=== PATIENT | male | born 1995 | race Caucasian/White ===

== ENCOUNTER 2019-12-17 18:46 | Emergency (ER) | payer BC ==
--- NOTE | 2019-12-17 20:41 | EDM.PDOC ---
ED HPI GENERAL MEDICAL PROBLEM - General Chief Complaint: Laceration Stated Complaint: LACERATION TO HEAD Time Seen by Provider: 12/17/19 19:22 Source of Information: Reports: Patient, Family (Mom at bedside) History Limitations: Reports: No Limitations - History of Present Illness INITIAL COMMENTS - FREE TEXT/NARRATIVE: chief complaint: head laceration This is a 24 year old male prior to arrival was at the [facility], slipped and fell, hit the side of his head on a fire ring. He did not have any LOC. Didn't realized he had a laceration until someone at the [facility] notice blood in his hair. He has no complaints. Onset: Today Duration: Hour(s): Location: Reports: Head Quality: Reports: Ache Severity: Mild Improves with: Reports: None Worsens with: Reports: None Associated Symptoms: Reports: No Other Symptoms Past Medical History Respiratory History: Reports: Asthma Other Respiratory History: asthma as a child, no issues in the last 10 years. Neurological History: Reports: Concussion - Past Surgical History HEENT Surgical History: Reports: LESLIEIK Social & Family History - Family History Family Medical History: Noncontributory - Tobacco Use Smoking Status *Q: Never Smoker - Caffeine Use Caffeine Use: Reports: None - Recreational Drug Use Recreational Drug Use: Yes Recreational Drug Type: Reports: Marijuana/Hashish Recreational Drug Use Frequency: Socially - Living Situation & Occupation Living situation: Reports: Single ED ROS GENERAL - Review of Systems Review Of Systems: See Below Constitutional: Reports: No Symptoms HEENT: Reports: No Symptoms Respiratory: Reports: No Symptoms Cardiovascular: Reports: No Symptoms Endocrine: Reports: No Symptoms GI/Abdominal: Reports: No Symptoms : Reports: No Symptoms Musculoskeletal: Reports: No Symptoms Skin: Reports: Wound (left side of scalp) Neurological: Reports: No Symptoms Psychiatric: Reports: No Symptoms Hematologic/Lymphatic: Reports: No Symptoms Immunologic: Reports: No Symptoms ED EXAM, SKIN/RASH Exam: See Below Exam Limited By: No Limitations General Appearance: Alert, WD/WN, No Apparent Distress Eye Exam: Bilateral Eye: EOMI, Normal Inspection, PERRL Ears: Normal External Exam Nose: Normal Inspection Throat/Mouth: Normal Inspection Neck: Normal Inspection, Supple, Non-Tender, Full Range of Motion Respiratory/Chest: No Respiratory Distress, Lungs Clear, Normal Breath Sounds Cardiovascular: Regular Rate, Rhythm, No Murmur GI/Abdominal: Soft Extremities: Normal Inspection, Normal Range of Motion, Non-Tender, No Pedal Edema, Normal Capillary Refill, Other (abrasion to left knee- without bleeding) Neurological: Alert, Oriented, No Motor/Sensory Deficits Psychiatric: Normal Affect, Normal Mood Skin: Warm, Dry, Wound/Incision Location, Skin: Head Characteristics: Linear Lymphatic: No Adenopathy ED SKIN PROCEDURES - Laceration/Wound Repair Left [place] Head Appearance: Subcutaneous, Linear, Clean Distal NVT: Neuro & Vascular Intact, No Tendon Injury Anesthetic Type: Local Local Anesthesia - Lidocaine (Xylocaine): 1% with EPI Local Anesthetic Volume: 2cc Skin Prep: Providone-Iodine (Betadine) Exploration/Debridement/Repair: Wound Explored Closed with: Sutures Lac/Wound length In cm: 1.4 Suture Size: 4-0 # of Sutures: 4 Suture Type: Prolene Sterile Dressing Applied: None Tetanus Status Addressed: Yes (last Td 2012) Complications: No Course - Vital Signs Last Recorded V/S: Last Vital Signs Temp 36.6 C 12/17/19 19:48 Pulse 106 H 12/17/19 19:48 Resp 16 12/17/19 19:48 BP 129/78 12/17/19 19:48 Pulse Ox 97 12/17/19 19:48 - Orders/Labs/Meds Orders: Active Orders 24 hr Category Date Time Status Bacitracin [Bacitracin Oint 1 GM] Med 12/17/19 20:44 Once 1 dose TOP ONETIME ONE - Re-Assessments/Exams Free Text/Narrative Re-Assessment/Exam: 12/17/19 20:51 laceration repair to left side of scalp without complication discussed infection control and follow up care Mom and Dennis agree with plan of care Departure - Departure Time of Disposition: 20:38 Disposition: Home, Self-Care 01 Condition: Good Clinical Impression: Scalp laceration - Discharge Information *PRESCRIPTION DRUG MONITORING PROGRAM REVIEWED*: Not Applicable *COPY OF PRESCRIPTION DRUG MONITORING REPORT IN PATIENT HANNAH: Not Applicable Instructions: Laceration Care, Adult, [id number], Sutured Wound Care, [id number] Referrals: PCP,None [Primary Care Provider] - Forms: ED Department Discharge Care Plan Goals: scalp laceration -sutures x 4 to left scalp -apply bacitracin ointment two times a day to wound for 3 days then daily -suture removed in 7 to 10 days -Monitor for signs of infection- redness, swelling, pain or discharge - seek medical evaluation Return to ER or Clinic if has any nausea, vomiting, fever, increased pain, discharge, not improving or has any concerns. Sepsis Event Note (ED) - Evaluation Sepsis Screening Result: No Definite Risk - Focused Exam Vital Signs: Vital Signs Temp Pulse Resp BP Pulse Ox 12/17/19 19:48 36.6 C 106 H 16 129/78 97 - Problem List & Annotations (1) Scalp laceration SNOMED Code(s): 900601089 Code(s): S01.01XA - LACERATION WITHOUT FOREIGN BODY OF SCALP, INITIAL ENCOUNTER Status: Acute Priority: High Current Visit: Yes Qualifiers: Encounter type: initial encounter Qualified Code(s): S01.01XA - Laceration without foreign body of scalp, initial encounter - Problem List Review Problem List Initiated/Reviewed/Updated: Yes - My Orders Last 24 Hours: My Active Orders 12/17/19 20:44 Bacitracin [Bacitracin Oint 1 GM] 1 dose TOP ONETIME ONE - Assessment/Plan Last 24 Hours: My Active Orders 12/17/19 20:44 Bacitracin [Bacitracin Oint 1 GM] 1 dose TOP ONETIME ONE Plan: scalp laceration -sutures x 4 to left scalp -apply bacitracin ointment two times a day to wound for 3 days then daily -suture removed in 7 to 10 days -Monitor for signs of infection- redness, swelling, pain or discharge - seek medical evaluation Return to ER or Clinic if has any nausea, vomiting, fever, increased pain, discharge, not improving or has any concerns.
[2019-12-17] MEDS ORDERED: Bacitracin Oint 1 GM U/D Packet TOP ONE (20:44)
[2019-12-17] MEDS ORDERED: Bacitracin Oint 1 GM U/D Packet ONE (20:44)
== END 2019-12-17 20:56 | disposition home or self-care (01) ==
LOC: JP.ED 18:46
DX: S01.01XA Laceration without foreign body of scalp, initial encounter (principal); J45.909 Unspecified asthma, uncomplicated; W01.198A Fall on same level from slipping, tripping and stumbling with subsequent striking against other object, initial encounter
CPT/HCPCS: 12001; 99282